=== PATIENT | male | born 1935 | race Caucasian/White ===

== ENCOUNTER 2022-03-09 08:53 | Inpatient (IN) | payer MEDICARE ==
[~2022-03-09] VITALS: Ht 177.8 cm; Wt 86.4 kg
[2022-03-09] MEDS ORDERED: SODIUM CHLORIDE 0.9% 500ML 500 ML IV ONE (09:45)
[2022-03-09 09:56] LABS: BASOPHILS % 0.5 % (0.0-1.0); EOSINOPHILS # (AUTO) 0.1 (0.0-0.4); EOSINOPHILS % 1.9 % (0.0-6.0); HEMATOCRIT 45.9 % (38.2-49.6); HEMOGLOBIN 13.6 g/dL (14.0-18.0); LYMPHOCYTES # (AUTO) 1.6 (1.0-3.2); MEAN CORPUSCULAR HEMOGLOBIN 29.1 pg (28-32); MEAN CORPUSCULAR HGB CONC 29.6 g/dL (31-35); MEAN CORPUSCULAR VOLUME 98.3 fL (81-99); MONOCYTES # (AUTO) 0.5 (0.2-0.8); NEUTROPHILS # (AUTO) 3.5 (2.1-6.9); NEUTROPHILS % 61.1 % (38.7-80.0); PLATELET COUNT 153 x10e3/uL (140-360); RED BLOOD COUNT 4.67 x10e6/uL (4.3-5.7); RED CELL DISTRIBUTION WIDTH 14.7 % (11.7-14.4)
[2022-03-09 10:18] LABS: ALBUMIN 3.8 g/dL (3.5-5.0); ALBUMIN/GLOBULIN RATIO 1.2 (0.8-2.0); ANION GAP 12.4 mmol/L (8-16); CREATININE, SERUM 1.92 mg/dL (0.72-1.25); MAGNESIUM 1.8 MG/DL (1.3-2.1); POTASSIUM 5.4 mmol/L (3.5-5.1)
[2022-03-09 10:21] LABS: CLARITY,URINE CLEAR (CLEAR); COLOR,URINE YELLOW (YELLOW); KETONES,URINE NEGATIVE (NEGATIVE); LEUKOCYTE ESTERASE ,URINE NEGATIVE (NEGATIVE); NITRITE,URINE NEGATIVE (NEGATIVE); PROTEIN,URINE DIPSTICK 2+ (NEGATIVE); URINE UROBILINOGEN 0.2 mg/dL (0.2 - 1)
[2022-03-09 10:25] LABS: CREATINE KINASE MB 0.6 ng/mL (0-5.0)
[2022-03-09 10:28] LABS: BACTERIA,URINE FEW /HPF; EPITHELIAL CELLS,URINE FEW /LPF
[2022-03-09] MEDS ORDERED: IOPAMIDOL 370 MG/ML 100 ML INFUS..BTL INJ ONE ×3 (10:38→23:27)
[2022-03-09] MEDS ORDERED: SODIUM CHLORIDE 0.9% 100 ML ONE ×3 (10:38→23:27)
[2022-03-09 10:51] LABS: INR 0.96
[2022-03-09 10:52] LABS: PARTIAL THROMBOPLASTIN TIME 30.8 seconds (23.8-35.5)
[2022-03-09] MEDS ORDERED: ASPIRIN 81 MG CHEW TAB PO ONE (12:00)
[2022-03-09] MEDS ORDERED: ONDANSETRON HCL INJ 2MG/ML 2ML 2 MG/ML VIAL IV PRN (12:00)
[2022-03-09] MEDS: SODIUM CHLORIDE 0.9% 1000ML 1,000 ML IV SCH ×2 (12:20→18:12)
[2022-03-09] MEDS ORDERED: ACETAMINOPHEN 325 MG TAB PO PRN (13:30)
[2022-03-09] MEDS ORDERED: POLYETHYLENE GLYCOL 3350 17 GM PACK PO PRN (13:30)
[2022-03-09 15:00] VITALS: BP 197/83
[2022-03-09 15:47] VITALS: BP 197/83
[2022-03-09 15:51] VITALS: BP 197/83
[2022-03-09] MEDS ORDERED: AMLODIPINE BESYL5 MG PO (17:09)
[2022-03-09] MEDS ORDERED: TACROLIMUS1 MG PO (17:09)
[2022-03-09] MEDS ORDERED: MYCOPHENOLATE250 MG PO (17:09)
[2022-03-09] MEDS ORDERED: LOSARTAN POTASS25 MG PO (17:09)
[2022-03-09] MEDS ORDERED: CLOPIDOGREL BISULFATE 75 MG TAB PO SCH (17:30)
[2022-03-09] MEDS: FAMOTIDINE 20 MG TAB PO SCH (18:09)
[2022-03-09] MEDS: HYDRALAZINE HCL 20 MG/ML VIAL IV PRN ×2 (18:09→21:59)
[2022-03-09] MEDS: DOCUSATE SODIUM 100 MG CAP PO SCH (18:09)
[2022-03-09 18:53] LABS: CREATINE KINASE MB 0.7 ng/mL (0-5.0)
[2022-03-09 19:10] LABS: ANION GAP 15.2 mmol/L (8-16); CALCIUM 9.6 mg/dL (8.4-10.2); CREATININE, SERUM 1.65 mg/dL (0.72-1.25); POTASSIUM 5.2 mmol/L (3.5-5.1)
[2022-03-09] MEDS ORDERED: SOD POLYSTYRENE SULFONATE SUSP 15 GM/60 ML BTL PO ONE (19:45)
[2022-03-09 20:45] VITALS: BP 183/77
[2022-03-09] MEDS: MYCOPHENOLATE MOFETIL 250 MG CAP PO SCH (21:00)
[2022-03-09] MEDS: TACROLIMUS 1 MG CAP PO SCH (21:00)
[2022-03-09] MEDS ORDERED: ATORVASTATIN 10 MG TAB PO SCH (21:00)
[2022-03-09] MEDS ORDERED: ASPIRIN 81 MG CHEW TAB PO STA (22:51)
[2022-03-09] MEDS ORDERED: ATORVASTATIN 40 MG TAB PO ONE (23:00)
[2022-03-10] VITALS (35 sets, daily range): BP systolic 128–184; BP diastolic 52–149
[2022-03-10 05:55] LABS: BASOPHILS % 0.5 % (0.0-1.0); HEMATOCRIT 42.1 % (38.2-49.6); HEMOGLOBIN 12.9 g/dL (14.0-18.0); LYMPHOCYTES # (AUTO) 0.8 (1.0-3.2); LYMPHOCYTES % 12.4 % (18.0-39.1); MEAN CORPUSCULAR HEMOGLOBIN 29.5 pg (28-32); MEAN CORPUSCULAR HGB CONC 30.6 g/dL (31-35); MEAN CORPUSCULAR VOLUME 96.1 fL (81-99); MONOCYTES # (AUTO) 0.3 (0.2-0.8); MONOCYTES % 4.7 % (4.4-11.3); NEUTROPHILS # (AUTO) 5.3 (2.1-6.9); NEUTROPHILS % 81.6 % (38.7-80.0); PLATELET COUNT 150 x10e3/uL (140-360); RED BLOOD COUNT 4.38 x10e6/uL (4.3-5.7); RED CELL DISTRIBUTION WIDTH 14.6 % (11.7-14.4)
[2022-03-10 06:16] LABS: ALBUMIN 3.7 g/dL (3.5-5.0); ALBUMIN/GLOBULIN RATIO 1.3 (0.8-2.0); ANION GAP 13.9 mmol/L (8-16); CALCIUM 9.8 mg/dL (8.4-10.2); CREATININE, SERUM 1.59 mg/dL (0.72-1.25); POTASSIUM 4.9 mmol/L (3.5-5.1)
[2022-03-10] MEDS: SODIUM CHLORIDE 0.9% 1000ML 1,000 ML IV SCH ×2 (06:23→17:15)
[2022-03-10 06:32] LABS: CHOL/HDL RATIO 4.1 (3.9-4.7); MAGNESIUM 1.7 MG/DL (1.3-2.1); PHOSPHORUS 2.6 MG/DL (2.3-4.7)
[2022-03-10 06:52] LABS: THYROID STIMULATING HORMONE 1.727 uIU/mL (0.350-4.940)
[2022-03-10] MEDS: FAMOTIDINE 20 MG TAB PO SCH (08:04)
[2022-03-10] MEDS: TACROLIMUS 1 MG CAP PO SCH ×2 (08:27→19:59)
[2022-03-10] MEDS: DOCUSATE SODIUM 100 MG CAP PO SCH ×2 (08:27→17:15)
[2022-03-10] MEDS: MYCOPHENOLATE MOFETIL 250 MG CAP PO SCH ×2 (08:28→19:59)
[2022-03-10] MEDS: AMLODIPINE BESYLATE 5 MG TAB PO SCH (08:33)
[2022-03-10] MEDS ORDERED: LOSARTAN POTASSIUM 25 MG TAB PO SCH (09:00)
[2022-03-10] MEDS ORDERED: ASPIRIN 81 MG ENTERIC COATED PO SCH (09:00)
[2022-03-10] MEDS ORDERED: DEXTROSE 50% SYRINGE 50 ML IV PRN (12:00)
[2022-03-10] MEDS ORDERED: METOCLOPRAMIDE HCL 10 MG TAB PO ONE (12:30)
[2022-03-10] MEDS: CARVEDILOL 3.125 MG TAB PO SCH (12:49)
[2022-03-10] MEDS: INSULIN REGULAR, HUMAN 100 UNIT/1 ML SQ SCH ×2 (16:30→20:09)
[2022-03-10] MEDS: PRAVASTATIN 20 MG TAB PO SCH (19:59)
[2022-03-11] VITALS (37 sets, daily range): BP systolic 124–169; BP diastolic 59–95
[2022-03-11] MEDS: HYDRALAZINE HCL 20 MG/ML VIAL IV PRN (01:40)
[2022-03-11] MEDS: SODIUM CHLORIDE 0.9% 1000ML 1,000 ML IV SCH (04:26)
[2022-03-11 07:06] LABS: ANION GAP 14.9 mmol/L (8-16); CALCIUM 9.3 mg/dL (8.4-10.2); CREATININE, SERUM 1.67 mg/dL (0.72-1.25); POTASSIUM 3.9 mmol/L (3.5-5.1)
[2022-03-11] MEDS: DOCUSATE SODIUM 100 MG CAP PO SCH ×2 (08:54→17:49)
[2022-03-11] MEDS: PANTOPRAZOLE SOD 40 MG TABEC PO SCH (08:54)
[2022-03-11] MEDS: CARVEDILOL 3.125 MG TAB PO SCH ×2 (08:55→17:50)
[2022-03-11] MEDS: AMLODIPINE BESYLATE 5 MG TAB PO SCH (08:55)
[2022-03-11] MEDS: TACROLIMUS 1 MG CAP PO SCH ×2 (08:55→20:35)
[2022-03-11] MEDS: MYCOPHENOLATE MOFETIL 250 MG CAP PO SCH ×2 (08:56→20:35)
[2022-03-11] MEDS: INSULIN REGULAR, HUMAN 100 UNIT/1 ML SQ SCH ×4 (09:07→20:35)
[2022-03-11] MEDS ORDERED: NIFEDIPINE CR 30 MG TAB PO ONE (11:00)
[2022-03-11] MEDS: PRAVASTATIN 20 MG TAB PO SCH (20:36)
[2022-03-12] VITALS (13 sets, daily range): BP systolic 128–158; BP diastolic 61–85
[2022-03-12 05:54] LABS: BASOPHILS % 0.5 % (0.0-1.0); EOSINOPHILS # (AUTO) 0.1 (0.0-0.4); EOSINOPHILS % 1.8 % (0.0-6.0); HEMATOCRIT 41.7 % (38.2-49.6); LYMPHOCYTES # (AUTO) 1.3 (1.0-3.2); LYMPHOCYTES % 20.1 % (18.0-39.1); MEAN CORPUSCULAR HEMOGLOBIN 29.7 pg (28-32); MEAN CORPUSCULAR HGB CONC 31.2 g/dL (31-35); MEAN CORPUSCULAR VOLUME 95.4 fL (81-99); MONOCYTES # (AUTO) 0.6 (0.2-0.8); MONOCYTES % 9.5 % (4.4-11.3); NEUTROPHILS # (AUTO) 4.5 (2.1-6.9); NEUTROPHILS % 67.3 % (38.7-80.0); PLATELET COUNT 141 x10e3/uL (140-360); RED BLOOD COUNT 4.37 x10e6/uL (4.3-5.7); RED CELL DISTRIBUTION WIDTH 14.8 % (11.7-14.4)
[2022-03-12 06:13] LABS: ALBUMIN 3.1 g/dL (3.5-5.0); ALBUMIN/GLOBULIN RATIO 1.2 (0.8-2.0); ANION GAP 12.1 mmol/L (8-16); CREATININE, SERUM 1.59 mg/dL (0.72-1.25); POTASSIUM 4.1 mmol/L (3.5-5.1)
[2022-03-12] MEDS: PANTOPRAZOLE SOD 40 MG TABEC PO SCH (08:00)
[2022-03-12] MEDS: INSULIN REGULAR, HUMAN 100 UNIT/1 ML SQ SCH ×4 (08:03→20:22)
[2022-03-12] MEDS: DOCUSATE SODIUM 100 MG CAP PO SCH ×2 (08:48→16:44)
[2022-03-12] MEDS: ASPIRIN 81 MG ENTERIC COATED PO SCH (08:49)
[2022-03-12] MEDS: CLOPIDOGREL BISULFATE 75 MG TAB PO SCH (08:49)
[2022-03-12] MEDS: NIFEDIPINE CR 30 MG TAB PO SCH (08:50)
[2022-03-12] MEDS: TACROLIMUS 1 MG CAP PO SCH ×2 (08:51→21:00)
[2022-03-12] MEDS: CARVEDILOL 3.125 MG TAB PO SCH ×2 (08:51→16:44)
[2022-03-12] MEDS: MYCOPHENOLATE MOFETIL 250 MG CAP PO SCH ×2 (08:52→21:00)
[2022-03-12] MEDS ORDERED: ONDANSETRON HCL 4 MG ORAL DISINTEGRATING TAB PO PRN (13:30)
[2022-03-12] MEDS ORDERED: ATORVASTATIN 20 MG TAB PO SCH (21:00)
[2022-03-13] VITALS (7 sets, daily range): BP systolic 130–161; BP diastolic 60–71
[2022-03-13] MEDS: TACROLIMUS 1 MG CAP PO SCH (09:00)
[2022-03-13] MEDS: MYCOPHENOLATE MOFETIL 250 MG CAP PO SCH (09:00)
[2022-03-13] MEDS: DOCUSATE SODIUM 100 MG CAP PO SCH ×2 (09:03→15:55)
[2022-03-13] MEDS: PANTOPRAZOLE SOD 40 MG TABEC PO SCH (09:03)
[2022-03-13] MEDS: CLOPIDOGREL BISULFATE 75 MG TAB PO SCH (09:03)
[2022-03-13] MEDS: ASPIRIN 81 MG ENTERIC COATED PO SCH (09:03)
[2022-03-13] MEDS: CARVEDILOL 3.125 MG TAB PO SCH ×2 (09:05→15:56)
[2022-03-13] MEDS: NIFEDIPINE CR 30 MG TAB PO SCH (09:05)
[2022-03-13] MEDS: INSULIN REGULAR, HUMAN 100 UNIT/1 ML SQ SCH ×3 (09:09→15:56)
[2022-03-13] MEDS ORDERED: ASPIRIN EC81 MG PO (17:29)
[2022-03-13] MEDS ORDERED: PROTONIX40 MG/ML PO (17:29)
[2022-03-13] MEDS ORDERED: PLAVIX75 MG PO (17:29)
[2022-03-13] MEDS ORDERED: LIPITOR20 MG PO (17:29)
[2022-03-13] MEDS ORDERED: NIFEDIPINE ER30 M1 PO (17:29)
[2022-03-13] MEDS ORDERED: COREG3.125 MG PO (17:29)
== END 2022-03-13 18:24 | disposition home or self-care (01) | DRG 64 ==
LOC: ER 09:00 → ERHOLD 12:04 → MED/SURG 14:58 → ICU 03-10 08:23 → OBSVTOIN 03-10 09:08 → MED/SURG3 03-12 11:20
PROVIDERS: ADMIT Internal Medicine; ATTEND Internal Medicine
DX: I63.9 Cerebral infarction, unspecified (principal); I21.A1 Myocardial infarction type 2; N17.9 Acute kidney failure, unspecified; Z94.4 Liver transplant status; R26.0 Ataxic gait; R47.01 Aphasia; R73.9 Hyperglycemia, unspecified; E87.5 Hyperkalemia; N18.30 Chronic kidney disease, stage 3 unspecified; I67.2 Cerebral atherosclerosis; I12.9 Hypertensive chronic kidney disease with stage 1 through stage 4 chronic kidney disease, or unspecified chronic kidney disease; E83.42 Hypomagnesemia; E80.6 Other disorders of bilirubin metabolism; Z85.828 Personal history of other malignant neoplasm of skin; Z85.51 Personal history of malignant neoplasm of bladder; Z90.89 Acquired absence of other organs; Z90.49 Acquired absence of other specified parts of digestive tract; Z98.890 Other specified postprocedural states; Z98.49 Cataract extraction status, unspecified eye; Z83.79 Family history of other diseases of the digestive system; Z87.891 Personal history of nicotine dependence
CPT/HCPCS: 36415; 70450; 70496; 70498; 71045; 74230; 80048; 80053; 80061; 81001; 82140; 82550; 82553; 82948; 83036; 83735; 83880; 84100; 84443; 84484; 85025; 85610; 85730; 87086; 93005; 93306; 94799; 96372; 99252; 99284; G0378; J0360; J1817; J2405; J7030; J7040; J7050; J7507; Q9967